=== PATIENT | male | born 1995 | race Caucasian/White ===

== ENCOUNTER → 2017-03-09 | Outpatient (CLI) | payer OTHER ==
[2014-01-24 14:27] VITALS: BP 127/73
[~2017-03-09] MED LIST: DIPH25TA64 PO; FEXO180T81 PO; FLUT16SP NS; METH36TA5 PO; MONT10TA9 PO; VERA120T59 PO
--- NOTE | 2017-03-10 11:16 | SLEEP ---
DATE OF STUDY: 03/09/2017 REFERRING PHYSICIAN: Anamika Moreno. The patient is 21 years old, who weighs 250 pounds with a BMI of 33. The patient's Kiowa score was 2. A split night study was performed at [facility]. During the night study, the patient spent 413 minutes in bed and slept for 261 minutes with a low sleep efficiency of 63%. Sleep latency was prolonged at 261 minutes with an absent REM sleep. Overall, sleep architecture showed increased stage 1 and stage 2 sleep, normal slow wave and significantly reduced REM sleep, which was only 1% the total sleep time. During the diagnostic portion of the study, the patient slept for 175 minutes. During that time, there were 2 obstructive apneas, 41 mixed apneas, no central apneas and 71 hypopneas. The patient's apnea hypopnea index was 39 per hour with a supine index of 59 per hour and a REM index of 40 per hour. EKG monitoring revealed average heart rate of 82 beats per minute, no sustained arrhythmias were observed. There was normal sinus rhythm. PLMS were not seen. Nocturnal oximetry study revealed a mean oxygen saturation of 97% with the lowest of 84%. 6% of time oxygen saturation remained between 80% and 89%. The patient met the criteria for CPAP initiation. It was started at 5 cm water and titrated up to 15 cm water. However, therapeutic CPAP pressure was not achieved on this split night study due to reduced sleep efficiency. At the final pressure, the patient slept for 13 minutes. The patient's AHI was still 92 per hour. Oxygen saturations remained in the mid 80s. The patient used a medium size full face mask. The patient should return to the sleep lab for CPAP/BiPAP titration study. IMPRESSION: 1. Severe sleep apnea-hypopnea syndrome at an AHI of 39 per hour. 2. Reduced sleep efficiency of 63%, resulting from sleep onset and sleep maintenance insomnia. 3. Mild nocturnal hypoxia secondary to obstructive sleep apnea. 4. No clinically significant PLMS. RECOMMENDATIONS: 1. Optimum CPAP pressure was not achieved on this split night study. I would recommend the patient should return to the sleep lab with CPAP/BiPAP titration study starting at a CPAP pressure of 15 cm water. Pt may need BIPAP. 2. Once optimum positive pressure therapy is accomplished, then patient should be followed up in 4-6 weeks to assess compliance and to document clinical improvement. 3. Weight loss is strongly advised. 4. Avoid [employer] depressants. 5. Caution regarding driving until symptoms of sleep apnea resolve with the above recommendations. FLORA CHAVES MD DR: VIJAYA/chata JOB#: [id number] / [id number] ANAMIKA Garcia APRN
== END | disposition home or self-care (01) ==
LOC: SLPLAB 18:01
PROVIDERS: ATTEND Nurse Practitioner Family
DX: G47.33 Obstructive sleep apnea (adult) (pediatric) (principal)
CPT/HCPCS: 95810

== ENCOUNTER → 2017-05-25 | Outpatient (CLI) | payer OTHER ==
[2017-05-25] MEDS: IBUPROFEN 600 MG TABLET. PO (22:00)
== END | disposition home or self-care (01) ==
LOC: RT 18:37
DX: G47.33 Obstructive sleep apnea (adult) (pediatric) (principal)
CPT/HCPCS: 95811

== ENCOUNTER 2017-12-20 04:35 | Emergency (ER) | payer OTHER ==
[~2017-12-20] VITALS: Ht 185.4 cm; Wt 108.0 kg
--- NOTE | 2017-12-20 05:24 | PHYS DOC ---
Past Medical History Past Medical History: Kidney Stone, Other Additional Past Medical Histor: ADHD, seasonal allergies, " periodic legs turn red, burning leg pain" Past Surgical History: Other Additional Past Surgical Histo: T&M tubes bilateral Alcohol Use: None Drug Use: None Adult General Chief Complaint Chief Complaint: FLANK PAIN HPI HPI Patient is a 22 year old male with history of kidney stones who presents with intermittent right-sided flank pain past 3 or 4 days. Patient states he feels as though he is passing kidney stones. Reports decreased urinary output, nausea and vomiting. No fever chills or. No other acute symptoms or complaints. Patient 's been taking Tylenol and ibuprofen with limited relief. Has past previous his previous kidney stones without intervention.[] Review of Systems Review of Systems Review symptoms as per history of present illness. All other review symptoms are negative.[] All other systems were reviewed and found to be within normal limits, except as documented in this note. Current Medications Current Medications Current Medications Medications (Trade) Dose Ordered Sig/Boogie Start Time Stop Time Status Last Admin Dose Admin Fentanyl Citrate (Fentanyl 2ml Vial) 50 mcg 1X ONCE 12/20/17 07:30 12/20/17 07:31 DC 12/20/17 08:08 50 MCG Ketorolac Tromethamine (Toradol 30mg Vial) 30 mg 1X ONCE 12/20/17 05:30 12/20/17 05:31 DC 12/20/17 05:27 30 MG Ondansetron HCl (Zofran) 4 mg 1X ONCE 12/20/17 05:30 12/20/17 05:31 DC 12/20/17 05:26 4 MG Sodium Chloride 1,000 ml @ 1,000 mls/hr 1X ONCE 12/20/17 05:30 12/20/17 06:29 DC 12/20/17 05:24 1,000 MLS/HR Tamsulosin HCl (Flomax) 0.4 mg 1X ONCE 12/20/17 07:30 12/20/17 07:31 DC 12/20/17 08:03 0.4 MG Allergies Allergies Allergies Coded Allergies Type Severity Reaction Last Updated Verified No Known Drug Allergies 01/08/14 No Physical Exam Physical Exam Constitutional: Well developed, well nourished, moderate discomfort secondary to pain. [] HENT: Normocephalic, atraumatic, bilateral external ears normal, oropharynx moist, no oral exudates, nose normal. [] Eyes: PERRLA, EOMI, conjunctiva normal, no discharge. [] Neck: Normal range of motion, no tenderness, supple, no stridor. [] Cardiovascular:Heart rate regular rhythm, no murmur [] Lungs & Thorax: Bilateral breath sounds clear to auscultation [] Abdomen: Bowel sounds normal, soft, no tenderness. [] Skin: Warm, dry, no erythema. [] Back: No tenderness, no CVA tenderness. [] Extremities: No tenderness. [] Neurologic: Alert and oriented, normal motor function, normal sensory function, no focal deficits noted. [] Psychologic: Affect normal, judgement normal, mood normal. [] PE: Osorio Constitutional: Well developed, well nourished, no acute distress Abdomen: Soft, nontender. [] Back: No tenderness, mild left CVA tenderness on palpation Neurologic: Alert and oriented, Current Patient Data Vital Signs Vital Signs Date Time Temp Pulse Resp B/P (MAP) Pulse Ox O2 Delivery O2 Flow Rate FiO2 12/20/17 08:30 12 135/75 (95) 98 Room Air 12/20/17 08:08 18 12/20/17 04:35 97.3 97.3 Lab Values Laboratory Tests Test 12/20/17 05:10 12/20/17 05:50 12/20/17 07:39 White Blood Count 10.2 x10^3/uL (4.0-11.0) Red Blood Count 5.14 x10^6/uL (4.30-5.70) Hemoglobin 16.7 g/dL (13.0-17.5) Hematocrit 47.2 % (39.0-53.0) Mean Corpuscular Volume 92 fL (79-100) Mean Corpuscular Hemoglobin 32 pg (25-35) Mean Corpuscular Hemoglobin Concent 35 g/dL (31-37) Red Cell Distribution Width 13.0 % (11.5-14.5) Platelet Count 222 x10^3/uL (140-400) Neutrophils (%) (Auto) 61 % (31-73) Lymphocytes (%) (Auto) 27 % (24-48) Monocytes (%) (Auto) 7 % (0-9) Eosinophils (%) (Auto) 4 % (0-3) H Basophils (%) (Auto) 1 % (0-3) Neutrophils # (Auto) 6.3 x10^3uL (1.8-7.7) Lymphocytes # (Auto) 2.8 x10^3/uL (1.0-4.8) Monocytes # (Auto) 0.7 x10^3/uL (0.0-1.1) Eosinophils # (Auto) 0.4 x10^3/uL (0.0-0.7) Basophils # (Auto) 0.1 x10^3/uL (0.0-0.2) Sodium Level 144 mmol/L (136-145) Potassium Level 4.0 mmol/L (3.5-5.1) Chloride Level 108 mmol/L (98-107) H Carbon Dioxide Level 25 mmol/L (21-32) Anion Gap 11 (6-14) Blood Urea Nitrogen 16 mg/dL (8-26) Creatinine 1.2 mg/dL (0.7-1.3) Estimated GFR (Cockcroft-Gault) 75.7 Glucose Level 108 mg/dL (70-99) H Calcium Level 8.6 mg/dL (8.5-10.1) Urine Collection Type Unknown Urine Color Yellow Urine Clarity Cloudy Urine pH 6.0 Urine Specific [place] 1.020 Urine Protein Negative mg/dL (NEG-TRACE) Urine Glucose (UA) Negative mg/dL (NEG) Urine Ketones (Stick) Negative mg/dL (NEG) Urine Blood Large (NEG) Urine Nitrite Negative (NEG) Urine Bilirubin Negative (NEG) Urine Urobilinogen Dipstick 0.2 mg/dL (0.2 mg/dL) Urine Leukocyte Esterase Negative (NEG) Urine RBC 20-40 /HPF (0-2) Urine WBC 1-4 /HPF (0-4) Urine Bacteria Few /HPF (0-FEW) Urine Mucus Slight /LPF Laboratory Tests 12/20/17 05:10 Laboratory Tests 12/20/17 05:50 EKG EKG [] Radiology/Procedures Radiology/Procedures PROCEDURE: CT ABDOMEN PELVIS WO CONTRAST INDICATION: left flank pain x 4 days, worse when he woke up tonight COMPARISON: January 23, 2014 TECHNIQUE: Axial CT images obtained through the abdomen and pelvis without contrast. One or more of the following individualized dose reduction techniques were utilized for this examination: 1. Automated exposure control; 2. Adjustment of the mA and/or kV according to patient size; 3. Use of iterative reconstruction technique. FINDINGS: Abdominal aorta is not aneurysmal. No intrahepatic bile duct dilation. No peripancreatic fluid collection. Spleen is unremarkable. Mild left-sided hydronephrosis with 4 mm left proximal ureter stone. Urinary bladder has minimal urine within it at time of exam. No right-sided hydronephrosis. 2 mm nonobstructive right renal stone. No periappendiceal inflammation. Mild haziness to the mesentery in the left-sided the abdomen is again seen with scattered prominent lymph nodes. Degenerative changes spine. IMPRESSION: 1. Left-sided hydronephrosis with proximal ureter stone. Electronically signed by: Raymundo Nguyen MD (12/20/2017 7:06 AM) [facility] Course & Med Decision Making Course & Med Decision Making Pertinent Labs and Imaging studies reviewed. (See chart for details) [Right flank pain radiating to right pelvis. Labs and imaging studies ordered and are pending. Pain and nausea distress. Care endorsed to oncoming ERP at 06: 00 for re-evaluation, review or labs and imaging studies and disposition ] Sign out received from Dr. Mcnulty for patient with LEFT sided flank pain. Patient seen and evaluated by myself. Labs reviewed. CT imaging pending at time of signout. CT with findings consistent for 4mm proximal ureteral stone with mild hydronephrosis. Flomax provided. Patient stable for discharge with outpatient follow-up with PCP/urologist. Urology referral provided. Discussed findings and plan with patient and family, who acknowledge understanding and agreement. Dragon Disclaimer Dragon Disclaimer This electronic medical record was generated, in whole or in part, using a voice recognition dictation system. Departure Departure Impression: Primary Impression: Kidney stone Disposition: HOME, SELF-CARE Condition: STABLE Referrals: SIN ROGERS APRN (PCP) SHASHI HOWARD MD Patient Instructions: Diet for Kidney Stones, Kidney Stones, Nqhn-op-Crcu Scripts Tamsulosin Hcl (FLOMAX) 0.4 Mg Cap.er.24h 1 CAP PO DAILY, #7 CAP 11 Refills Prov: ELLE OSORIO DO 12/20/17 Ondansetron (ZOFRAN ODT) 4 Mg Tab.rapdis 4 MG PO TID PRN PRN for NAUSEA/VOMITING, #14 TAB Prov: ELLE OSORIO DO 12/20/17 Hydrocodone/Apap 5-325 (NORCO 5-325 TABLET) 1 Each Tablet 1 TAB PO PRN Q6HRS PRN for PAIN, #14 TAB 0 Refills Prov: ELLE OSORIO DO 12/20/17 KATALINA MCNULTY DO Dec 20, 2017 05:24 ELLE OSORIO DO Dec 20, 2017 08:48
[2017-12-20] MEDS ORDERED: KETOROLAC 30 MG/ML VIAL. IV ONE (05:30)
[2017-12-20] MEDS ORDERED: IV NORMAL SALINE 1000ML BAG 1,000 ML IV ONE (05:30)
[2017-12-20] MEDS ORDERED: ONDANSETRON PF 4 MG/2 ML VIAL. IV ONE (05:30)
[2017-12-20] MEDS ORDERED: fentaNYL PF VIAL 100 MCG/2 ML VIAL IV ONE ×2 (05:30→07:30)
[2017-12-20 05:34] LABS: BASO # 0.1 x10^3/uL (0.0-0.2); BASO % 1 % (0-3); EOS # 0.4 x10^3/uL (0.0-0.7); EOS % 4 % (0-3); HEMATOCRIT 47.2 % (39.0-53.0); HEMOGLOBIN 16.7 g/dL (13.0-17.5); LYMPH # 2.8 x10^3/uL (1.0-4.8); LYMPH % 27 % (24-48); MEAN CORPUSCULAR HEMOGLOBIN 32 pg (25-35); MEAN CORPUSCULAR HGB CONC 35 g/dL (31-37); MEAN CORPUSCULAR VOLUME 92 fL (79-100); MONO # 0.7 x10^3/uL (0.0-1.1); MONO % 7 % (0-9); NEUT # 6.3 x10^3uL (1.8-7.7); NEUT % 61 % (31-73); PLATELET COUNT 222 x10^3/uL (140-400); RED BLOOD COUNT 5.14 x10^6/uL (4.30-5.70); WHITE BLOOD COUNT 10.2 x10^3/uL (4.0-11.0)
[2017-12-20 06:17] LABS: CALCIUM 8.6 mg/dL (8.5-10.1); CREATININE 1.2 mg/dL (0.7-1.3); GFR 75.7
--- NOTE | 2017-12-20 07:10 | RAD ---
INDICATION: left flank pain x 4 days, worse when he woke up tonight COMPARISON: January 23, 2014 TECHNIQUE: Axial CT images obtained through the abdomen and pelvis without contrast. One or more of the following individualized dose reduction techniques were utilized for this examination: 1. Automated exposure control; 2. Adjustment of the mA and/or kV according to patient size; 3. Use of iterative reconstruction technique. FINDINGS: Abdominal aorta is not aneurysmal. No intrahepatic bile duct dilation. No peripancreatic fluid collection. Spleen is unremarkable. Mild left-sided hydronephrosis with 4 mm left proximal ureter stone. Urinary bladder has minimal urine within it at time of exam. No right-sided hydronephrosis. 2 mm nonobstructive right renal stone. No periappendiceal inflammation. Mild haziness to the mesentery in the left-sided the abdomen is again seen with scattered prominent lymph nodes. Degenerative changes spine. IMPRESSION: 1. Left-sided hydronephrosis with proximal ureter stone. Electronically signed by: Raymundo Nguyen MD (12/20/2017 7:06 AM) [facility]
[2017-12-20] MEDS ORDERED: TAMSULOSIN 0.4 MG CAP.ER.24H. PO ONE (07:30)
[2017-12-20 08:06] LABS: BILIRUBIN,URINE NEGATIVE (NEG); CLARITY,URINE CLOUDY; COLOR,URINE YELLOW; NITRITE,URINE NEGATIVE (NEG); PROTEIN,URINE NEGATIVE (NEG-TRACE); UROBILINOGEN,URINE 0.2 mg/dL (0.2 mg/dL)
[2017-12-20 08:16] LABS: BACTERIA,URINE FEW /HPF (0-FEW); RBC,URINE 20-40 /HPF (0-2)
[2017-12-20 08:30] VITALS: BP 135/75
[2017-12-20] MEDS ORDERED: TAMS0.4C97 PO (08:48)
[2017-12-20] MEDS ORDERED: ONDA4TAB10 PO (08:48)
[2017-12-20] MEDS ORDERED: HYDR-971 PO (08:48)
== END 2017-12-20 09:09 | disposition home or self-care (01) ==
LOC: ER 04:35
DX: N13.2 Hydronephrosis with renal and ureteral calculous obstruction (principal); R11.2 Nausea with vomiting, unspecified; Z87.442 Personal history of urinary calculi
CPT/HCPCS: 36415; 74176; 80048; 81001; 85025; 96361; 96374; 96375; 96376; 99285; J1885; J2405; J3010; J7030

== ENCOUNTER 2017-12-26 12:05 | Day surgery (SDC) | payer OTHER ==
[~2017-12-26 12:05] MED LIST changes: +HYDR-971 PO; +HYDROmorphone 2 MG/ML VIAL IV PRN; +IV RINGERS,LACTATED 1000ML 1,000 ML IV SCH; +LIDOCAINE 1% PF 2 ML VIAL. ID PRN; +MORPHINE SULFATE 2 MG/ML VIAL. IV PRN; +ONDA4TAB10 PO; +ONDANSETRON PF 4 MG/2 ML VIAL. IV PRN; +PROCHLORPERAZINE 10 MG/2 ML VIAL. IV PRN; +TAMS0.4C97 PO; +fentaNYL PF VIAL 100 MCG/2 ML VIAL IV PRN
[2017-12-26] MEDS ORDERED: LIDOCAINE 2% JELLY 6ML IN APPLICATOR. ONE (12:32)
[2017-12-26] MEDS ORDERED: IOHEXOL 300 MG/ML 100ML VIAL. ONE (12:32)
[2017-12-26] MEDS ORDERED: PROPOFOL 20 ML IV ONE (13:54)
[2017-12-26] MEDS ORDERED: fentaNYL PF VIAL 100 MCG/2 ML VIAL ONE (13:54)
[2017-12-26] MEDS ORDERED: MIDAZOLAM HCL/PF 2 MG/2 ML VIAL. ONE (13:54)
[2017-12-26] MEDS ORDERED: DEXAMETHASONE SOD PHOS 20 MG/5 ML VIAL. ONE (14:10)
[2017-12-26] MEDS ORDERED: ONDANSETRON PF 4 MG/2 ML VIAL. ONE (14:10)
[2017-12-26] MEDS ORDERED: SEVOFLURANE > 120 MINUTES. IH ONE (14:13)
[2017-12-26] MEDS ORDERED: KETOROLAC 30 MG/ML INJ FOR OR. INJ ONE (14:55)
[2017-12-26] MEDS ORDERED: SEVOFLURANE 61 TO 120 MINUTES. IH ONE (15:02)
--- NOTE | 2017-12-26 15:07 | DISCH ---
DISCHARGE INSTRUCTIONS Condition on Discharge Condition on Discharge: Stable Activity After Discharge Activity Instructions for Disc: No restrictions Exercise Instruction after Dis: Progress as tolerated Driving Instructions after Dis: Other, see below (DO not drive if taking natcotic pain medication) Diet after Discharge Diet after Discharge: Regular Diet Texture: Regular Wound Incision Care Wound/Incision Care: Other, see below (Remove your ureteral stent on Tuesday morning) Contacting the [facility] after DC Call your doctor for: Fevers, nausea, pain, bleeding, trouble urinating Follow-Up Follow up with: Dr. Jimenez in 3 week. Please call to schedule. GERARDO JIMENEZ MD Dec 26, 2017 15:07
--- NOTE | 2017-12-26 15:11 | PDOC ---
BRIEF OPERATIVE NOTE Pre-Op Diagnosis left ureteral stone Post-Op Diagnosis same Procedure Performed cystoscopy, Left: retrograde pyelogram, ureteroscopy, laser lithotripsy, ureteral stent placement Anesthesia Type: General Blood Loss <5cc Specimens Obtained ureteral stone Findings elevated bladder neck, distal ureteral stone Complications none Operative Note Dictated GERARDO JIMENEZ MD Dec 26, 2017 15:11
[2017-12-26] MEDS: fentaNYL PF VIAL 100 MCG/2 ML VIAL IV PRN ×2 (15:36→15:51)
[2017-12-26] MEDS ORDERED: oxyCODONE/APAP 5/325 1 TAB TABLET PO ONE (15:45)
[2017-12-26] MEDS ORDERED: OXYC-323 PO (16:18)
[2017-12-26 16:30] VITALS: BP 141/89
--- NOTE | 2017-12-27 14:53 | OP ---
DATE OF SURGERY: 12/26/2017 PREOPERATIVE DIAGNOSIS: ____ ureteral stone. POSTOPERATIVE DIAGNOSIS: ____ ureteral stone. PROCEDURES PERFORMED: 1. Cystourethroscopy. 2. Left retrograde pyelogram, ureteroscopy, laser lithotripsy, 6-Ugandan x 26-cm double-J ureteral stent on string placement. ANESTHESIA: General. COMPLICATIONS: None. ESTIMATED BLOOD LOSS: Less than 5 mL. INDICATIONS FOR PROCEDURE: The patient is a 22-year-old male who presented on Tuesday with renal colic and was found to have a 4 mm ureteral stone on the left. He was counseled regarding options and elected for the above-mentioned procedures. DESCRIPTION OF PROCEDURE: The patient was met in the preoperative holding area where his procedure, risks and benefits, and alternatives were reviewed in detail. Informed consent was obtained. He was brought back to the operating room and placed supine on the operating table. A timeout was called, identifying the correct patient, procedure, preoperative antibiotics and left-sided laterality. All members of surgical team were in agreement. General anesthesia was induced and he was repositioned into dorsal lithotomy and prepped and draped in sterile fashion. A 21-Ugandan rigid cystoscope was placed atraumatically through his urethra into his bladder. No abnormalities were noted within the anterior urethra. His prostate was 2 cm and nonobstructing. He had a very high bladder neck. Complete cystoscopy with both 30 and 70 degree lenses did not identify any mucosal lesions, stones or debris. His left ureteral orifice was cannulated with a Sensor wire. This was fed up to the renal pelvis under fluoroscopic guidance. The bladder was emptied and the scope removed. Alongside the wire, a semirigid ureteroscope was placed into the distal ureter where the stone in question was identified approximately 5 cm in. This was lasered with a holmium laser and larger pieces were basketed out. We then performed a pyeloscopy as approximately as we could, which appeared to be near the ureteropelvic junction. A retrograde pyelogram was shot confirming the renal anatomy. There were no filling defects within the upper collecting system. The calices were crisp. The scope was looked out and no trauma or remaining stones were noted within the ureter. The rigid cystoscope was replaced and the bladder inspected. No trauma was noted. The stones were evacuated and sent to pathology labeled left ureteral stone. The bladder was emptied and the scope was removed under direct vision. Over the remaining wire using fluoroscopic guidance, a 6-Ugandan x 26-cm double-J ureteral stent was placed. Good positioning was noted within the kidney and in the bladder on fluoroscopy. This was then tegadermed to his penis. He was awoken and transferred to the PACU in stable condition with plans for stent removal on Tuesday and outpatient followup in 3 weeks to review stone prevention. GERARDO JIMENEZ MD DR: JUSTINE/nts JOB#: [id number] / [id number]
== END 2017-12-26 16:55 | disposition home or self-care (01) ==
LOC: SURG 12:05
PROVIDERS: ATTEND Urology
DX: N20.1 Calculus of ureter (principal); I10 Essential (primary) hypertension; F90.9 Attention-deficit hyperactivity disorder, unspecified type; Z91.018 Allergy to other foods; Z79.899 Other long term (current) drug therapy; Z98.890 Other specified postprocedural states; Z83.3 Family history of diabetes mellitus; Z82.49 Family history of ischemic heart disease and other diseases of the circulatory system; Z72.89 Other problems related to lifestyle
CPT/HCPCS: 52356; 74420; A7015; C1713; C2617; J0690; J1100; J1885; J2250; J2405; J2704; J3010; Q9967

== ENCOUNTER 2018-03-11 10:38 | Emergency (ER) | payer OTHER ==
[~2018-03-11] VITALS: Ht 185.4 cm; Wt 108.9 kg
[~2018-03-11 10:38] MED LIST changes: +HYDR-3164 PO; -HYDR-971 PO; -HYDROmorphone 2 MG/ML VIAL IV PRN; -IV RINGERS,LACTATED 1000ML 1,000 ML IV SCH; -LIDOCAINE 1% PF 2 ML VIAL. ID PRN; -MORPHINE SULFATE 2 MG/ML VIAL. IV PRN; -ONDANSETRON PF 4 MG/2 ML VIAL. IV PRN; +OXYC1TAB15 PO; -PROCHLORPERAZINE 10 MG/2 ML VIAL. IV PRN; -fentaNYL PF VIAL 100 MCG/2 ML VIAL IV PRN
[2018-03-11] MEDS ORDERED: ONDANSETRON PF 4 MG/2 ML VIAL. ONE (11:20)
[2018-03-11] MEDS ORDERED: ONDANSETRON PF 4 MG/2 ML VIAL. IV ONE (11:30)
[2018-03-11] MEDS ORDERED: PANTOPRAZOLE IV PUSH 40 MG VIAL. IVP ONE (11:30)
[2018-03-11] MEDS ORDERED: IV NORMAL SALINE 1000ML BAG 1,000 ML IV ONE (11:30)
[2018-03-11 11:34] LABS: BASO % 1 % (0-3); EOS # 0.1 x10^3/uL (0.0-0.7); EOS % 2 % (0-3); HEMATOCRIT 48.3 % (39.0-53.0); HEMOGLOBIN 17.2 g/dL (13.0-17.5); LYMPH # 1.3 x10^3/uL (1.0-4.8); LYMPH % 18 % (24-48); MEAN CORPUSCULAR HEMOGLOBIN 33 pg (25-35); MEAN CORPUSCULAR HGB CONC 36 g/dL (31-37); MEAN CORPUSCULAR VOLUME 91 fL (79-100); MONO # 0.5 x10^3/uL (0.0-1.1); MONO % 6 % (0-9); NEUT # 5.3 x10^3uL (1.8-7.7); NEUT % 74 % (31-73); PLATELET COUNT 231 x10^3/uL (140-400); RED BLOOD COUNT 5.29 x10^6/uL (4.30-5.70); RED CELL DISTRIBUTION WIDTH 12.6 % (11.5-14.5); WHITE BLOOD COUNT 7.2 x10^3/uL (4.0-11.0)
[2018-03-11 11:37] LABS: CALCIUM 8.9 mg/dL (8.5-10.1); CREATININE 1.1 mg/dL (0.7-1.3); GFR 83.7
[2018-03-11 11:43] LABS: ALBUMIN 4.1 g/dL (3.4-5.0); ALBUMIN/GLOBULIN RATIO 1.2 (1.0-1.7); TOTAL BILIRUBIN 1.3 mg/dL (0.2-1.0); TOTAL PROTEIN 7.4 g/dL (6.4-8.2)
[2018-03-11 12:40] LABS: BILIRUBIN,URINE NEGATIVE (NEG); CLARITY,URINE CLEAR; COLOR,URINE YELLOW; NITRITE,URINE NEGATIVE (NEG); PROTEIN,URINE NEGATIVE (NEG-TRACE)
[2018-03-11 12:55] LABS: BACTERIA,URINE 0 /HPF (0-FEW); RBC,URINE 0 /HPF (0-2)
[2018-03-11 13:40] VITALS: BP 125/67
--- NOTE | 2018-03-11 13:56 | RAD ---
Indication:RUQ PAIN TECHNIQUE: Grayscale, color Doppler and spectral waveform is of the abdomen obtained. COMPARISON:None FINDINGS:Pancreas, IVC and aorta aren't visualized due to overlying bowel gas. Liver is mildly enlarged in size measuring 18 cm with diffuse increased echogenicity and decreased through transmission. Main portal vein is patent. No gallstones, pericholecystic fluid or gallbladder wall thickening. CBD measures 4 mm in diameter and is within normal limits. Right kidney measures 12.3 cm in length without hydronephrosis. IMPRESSION: 1. Mild hepatomegaly with hepatic steatosis. 2. No cholelithiasis or sonographic evidence of acute cholecystitis. Electronically signed by: Peter French DO (03/11/2018 1:52 PM) [facility]
--- NOTE | 2018-03-11 14:01 | PHYS DOC ---
Past Medical History Past Medical History: No Pertinent History, Kidney Stone, Other Additional Past Medical Histor: ADHD, seasonal allergies, " periodic legs turn red, burning leg pain" Past Surgical History: Other Additional Past Surgical Histo: T&M tubes bilateral Alcohol Use: None Drug Use: None Adult General Chief Complaint Chief Complaint: NAUSEA/VOMITING/DIARRHA HPI HPI Patient is a 22 year old male who presents with complaints of epigastric abdominal pain that radiates into his chest starting this morning. Pt states his pain was so bad he was doubled over on the floor, at that time his mother called 911. Paramedics arrived and evaluated pt. Pt was cleared however his pain returned and his mother brought him to the ER for further evaluation. Pain is epigastric with radiation into the center of his chest. The pain was accompanied by one episode of vomiting. Mother is concerned about cardiac etiology because of extension cardiac history. Denies SOA, cough, abdominal pain , diarrhea, flank pain, low back pain, urinary symptoms or other associated complaints. Review of Systems Review of Systems Constitutional: Denies fever or chills [] Eyes: Denies change in visual acuity, redness, or eye pain [] HENT: Denies nasal congestion or sore throat [] Respiratory: Denies cough or shortness of breath [] Cardiovascular: No additional information not addressed in HPI [] GI: Denies abdominal pain, nausea, vomiting, bloody stools or diarrhea [] : Denies dysuria or hematuria [] Musculoskeletal: Denies back pain or joint pain [] Integument: Denies rash or skin lesions [] Neurologic: Denies headache, focal weakness or sensory changes [] Endocrine: Denies polyuria or polydipsia [] All other systems were reviewed and found to be within normal limits, except as documented in this note. Current Medications Current Medications Current Medications Medications (Trade) Dose Ordered Sig/Boogie Start Time Stop Time Status Last Admin Dose Admin Multi-Ingredient Mouthwash/Gargle (Gi Cocktail) 20 ml 1X ONCE 03/11/18 14:45 03/11/18 14:46 Ondansetron HCl (Zofran) 4 mg 1X ONCE 03/11/18 11:30 03/11/18 11:31 DC 03/11/18 11:37 4 MG Pantoprazole Sodium (PROTONIX VIAL for IV PUSH) 40 mg 1X ONCE 03/11/18 11:30 03/11/18 11:31 DC 03/11/18 11:54 40 MG Sodium Chloride 1,000 ml @ 1,000 mls/hr 1X ONCE 03/11/18 11:30 03/11/18 12:29 DC 03/11/18 11:38 1,000 MLS/HR Allergies Allergies Allergies Coded Allergies Type Severity Reaction Last Updated Verified No Known Drug Allergies 01/08/14 No Physical Exam Physical Exam Constitutional: Well developed, well nourished, no acute distress, non-toxic appearance. [] HENT: Normocephalic, atraumatic, bilateral external ears normal, oropharynx moist, no oral exudates, nose normal. [] Eyes: PERRLA, EOMI, conjunctiva normal, no discharge. [] Neck: Normal range of motion, no tenderness, supple, no stridor. [] Cardiovascular:Heart rate regular rhythm, no murmur [] Lungs & Thorax: Bilateral breath sounds clear to auscultation [] Abdomen: Bowel sounds normal, soft, no tenderness, no masses, no pulsatile masses. [] Skin: Warm, dry, no erythema, no rash. [] Back: No tenderness, no CVA tenderness. [] Extremities: No tenderness, no cyanosis, no clubbing, ROM intact, no edema. [] Neurologic: Alert and oriented X 3, normal motor function, normal sensory function, no focal deficits noted. [] Psychologic: Affect normal, judgement normal, mood normal. [] Current Patient Data Vital Signs Vital Signs Date Time Temp Pulse Resp B/P (MAP) Pulse Ox O2 Delivery O2 Flow Rate FiO2 03/11/18 13:40 70 19 125/67 (86) 98 Room Air 03/11/18 10:49 97.5 97.5 Lab Values Laboratory Tests Test 03/11/18 11:15 03/11/18 12:30 White Blood Count 7.2 x10^3/uL (4.0-11.0) Red Blood Count 5.29 x10^6/uL (4.30-5.70) Hemoglobin 17.2 g/dL (13.0-17.5) Hematocrit 48.3 % (39.0-53.0) Mean Corpuscular Volume 91 fL (79-100) Mean Corpuscular Hemoglobin 33 pg (25-35) Mean Corpuscular Hemoglobin Concent 36 g/dL (31-37) Red Cell Distribution Width 12.6 % (11.5-14.5) Platelet Count 231 x10^3/uL (140-400) Neutrophils (%) (Auto) 74 % (31-73) H Lymphocytes (%) (Auto) 18 % (24-48) L Monocytes (%) (Auto) 6 % (0-9) Eosinophils (%) (Auto) 2 % (0-3) Basophils (%) (Auto) 1 % (0-3) Neutrophils # (Auto) 5.3 x10^3uL (1.8-7.7) Lymphocytes # (Auto) 1.3 x10^3/uL (1.0-4.8) Monocytes # (Auto) 0.5 x10^3/uL (0.0-1.1) Eosinophils # (Auto) 0.1 x10^3/uL (0.0-0.7) Basophils # (Auto) 0.0 x10^3/uL (0.0-0.2) Sodium Level 139 mmol/L (136-145) Potassium Level 4.0 mmol/L (3.5-5.1) Chloride Level 104 mmol/L (98-107) Carbon Dioxide Level 25 mmol/L (21-32) Anion Gap 10 (6-14) Blood Urea Nitrogen 15 mg/dL (8-26) Creatinine 1.1 mg/dL (0.7-1.3) Estimated GFR (Cockcroft-Gault) 83.7 BUN/Creatinine Ratio 14 (6-20) Glucose Level 103 mg/dL (70-99) H Calcium Level 8.9 mg/dL (8.5-10.1) Total Bilirubin 1.3 mg/dL (0.2-1.0) H Aspartate Amino Transferase (AST) 51 U/L (15-37) H Alanine Aminotransferase (ALT) 102 U/L (16-63) H Alkaline Phosphatase 68 U/L (46-116) Total Protein 7.4 g/dL (6.4-8.2) Albumin 4.1 g/dL (3.4-5.0) Albumin/Globulin Ratio 1.2 (1.0-1.7) Urine Collection Type Unknown Urine Color Yellow Urine Clarity Clear Urine pH 6.0 Urine Specific Sherrill 1.020 Urine Protein Negative mg/dL (NEG-TRACE) Urine Glucose (UA) Negative mg/dL (NEG) Urine Ketones (Stick) Negative mg/dL (NEG) Urine Blood Negative (NEG) Urine Nitrite Negative (NEG) Urine Bilirubin Negative (NEG) Urine Urobilinogen Dipstick 1.0 mg/dL (0.2 mg/dL) Urine Leukocyte Esterase Negative (NEG) Urine RBC 0 /HPF (0-2) Urine WBC 1-4 /HPF (0-4) Urine Bacteria 0 /HPF (0-FEW) Urine Mucus Mod /LPF Laboratory Tests 03/11/18 11:15 Laboratory Tests 03/11/18 11:15 EKG EKG 1127: Rate 72 sinus rhythm Reviewed by Dr Garcia NO STEMI Radiology/Procedures Radiology/Procedures [[facility] [address] [place] [address] IMAGING REPORT Signed PATIENT: KATALINA GEE ACCOUNT: [id number] : 1995 LOCATION: ER AGE: 22 SEX: M EXAM STATUS: REG ER ORD. PHYSICIAN: CAMI GARCIA DO REASON: RUQ pain, focus on GB PROCEDURE: ABDOMEN LTD Indication:RUQ PAIN TECHNIQUE: Grayscale, color Doppler and spectral waveform is of the abdomen obtained. COMPARISON:None FINDINGS:Pancreas, IVC and aorta aren't visualized due to overlying bowel gas. Liver is mildly enlarged in size measuring 18 cm with diffuse increased echogenicity and decreased through transmission. Main portal vein is patent. No gallstones, pericholecystic fluid or gallbladder wall thickening. CBD measures 4 mm in diameter and is within normal limits. Right kidney measures 12.3 cm in length without hydronephrosis. IMPRESSION: 1. Mild hepatomegaly with hepatic steatosis. 2. No cholelithiasis or sonographic evidence of acute cholecystitis. Electronically signed by: Peter French DO (03/11/2018 1:52 PM) [facility] DICTATED and SIGNED BY: PETER FRENCH DO DATE: 03/11/18 3300 ] Course & Med Decision Making Course & Med Decision Making Pertinent Labs and Imaging studies reviewed. (See chart for details) Extensively spoke with family and pt regarding negative workup including unremarkable EKG. At that time mother stated pt was supposed to have an US of his gallbladder in the past however has not been able to complete exam and she would like it ordered now. Although pain has subsided after protonix administration which is likely because his pain is GERD in nature. However, pt has some mild tenderness to RUQ. Will order US imaging however pt and family is aware that US imaging might be negative. If that is the case he will need to follow-up with his PCP for potentially a nuclear medicine scan to determine functioning of GB. Reviewed negative US scan for cholecystitis. Liver was found to be enlarged which would be consistent with increased liver function tests. At that time mother requested a troponin level be checked. Mother was educated that pt's EKG was normal and his pain has subsided after protonix administration therefore a troponin level is not indicated at this time as his pain is less likely cardiac in nature. Pt is instructed to take Protonix as directed, low fat diet and increase water intake. Follow up with PCP next week Dragon Disclaimer Dragon Disclaimer This electronic medical record was generated, in whole or in part, using a voice recognition dictation system. Departure Departure Impression: Primary Impression: Epigastric abdominal pain Additional Impression: Hepatomegaly Disposition: HOME, SELF-CARE Condition: STABLE Referrals: SIN ROGERS APRN (PCP) Patient Instructions: Diet for Gastroesophageal Reflux Disease, Adult, Easy-to- Read, Gastroesophageal Reflux Disease, Adult, [id number] Additional Instructions: Take Protonix as directed Low fat diet, read dietary guidelines for GERD that were given to you Increase water intake Follow up with your PCP next week Scripts Pantoprazole Sodium (PROTONIX) 20 Mg Tablet. 1 TAB PO BID, #60 TAB Prov: PARAG HEWITT NP 03/11/18 Problem Qualifiers PARAG HEWITT NP Mar 11, 2018 14:01
[2018-03-11] MEDS ORDERED: PANT20TA2 PO (14:28)
--- NOTE | 2018-03-11 14:28 | EKG ---
[facility] [address] [place] [address] Test Date: 2018-03-11 Test Time: 11:27:44 Pat Name: KATALINA GEE Department: Room: Gender: M Performance Improvement Manager: : 1995 Requested By: CAMI LARSEN Order Number: [id number] Reading MD: Measurements Intervals [place] Rate: 72 P: 24 AR: 150 QRS: 31 QRSD: 92 T: 25 QT: 356 QTc: 395 Interpretive Statements SINUS RHYTHM NON SPECIFIC ST-T ABNORMALITY (ELEVATION) OTHERWISE NORMAL ECG No previous ECG available for comparison
[2018-03-11] MEDS ORDERED: LIDO:MAALOX 1:1 20 ML SINGLE DOSE. PO ONE (14:45)
== END 2018-03-11 14:40 | disposition home or self-care (01) ==
LOC: ER 10:38
DX: R10.13 Epigastric pain (principal); R16.0 Hepatomegaly, not elsewhere classified; R10.11 Right upper quadrant pain; R11.10 Vomiting, unspecified; R07.89 Other chest pain; K21.9 Gastro-esophageal reflux disease without esophagitis; F90.9 Attention-deficit hyperactivity disorder, unspecified type; Z87.442 Personal history of urinary calculi
CPT/HCPCS: 36415; 76705; 80053; 81001; 85025; 93005; 96361; 96374; 96375; 99284; C9113; J2405; J7030

== ENCOUNTER → 2018-04-06 | Outpatient (CLI) | payer OTHER ==
[2018-03-11 13:40] VITALS: BP 125/67
[~2018-04-06] VITALS: Ht 185.4 cm; Wt 127.0 kg
[~2018-04-06] MED LIST changes: +MONT10TA49 PO; -MONT10TA9 PO; +PANT20TA2 PO; +SINCALIDE 2.54 MCG in IV NORMAL SALINE 50ML 30 ML IV ONE; -VERA120T59 PO; +VERA120T7 PO
--- NOTE | 2018-04-06 11:09 | RAD ---
HEPATOBILIARY SCAN WITH EJECTION FRACTION 04/06/2018 11:04 AM History: epigastric abdomen pain 1 time about 1 month ago. 5.4mCi Tc99m Choletec and 2.54mcg CCK given IV over 30 minutes Procedure: Serial static images are obtained of the liver and biliary system in the frontal projection following IV administration of 5.4 mCi of Technetium 99m Choletec. After filling of the gallbladder, 2.54 mcg of sincalide were infused over 30 minutes and dynamic imaging continued over this period. The gallbladder ejection fraction was calculated. Findings: There is prompt hepatic clearance of tracer from the blood pool. There is homogeneous distribution throughout the liver. The gallbladder ejection fraction measures 95% (normal gallbladder EF is 35% or greater). IMPRESSION: 1. The cystic duct and common bile duct are patent. Negative for acute cholecystitis. 2. The gallbladder ejection fraction is normal Electronically signed by: Marco Antonio Kirkpatrick MD (04/06/2018 11:05 AM) [id number]
== END | disposition home or self-care (01) ==
LOC: NM 08:46
PROVIDERS: ATTEND Nurse Practitioner Family
DX: R10.13 Epigastric pain (principal)
CPT/HCPCS: 78227; A9537; J2805

== ENCOUNTER → 2018-07-11 | Outpatient (CLI) | payer OTHER ==
[~2018-07-11] MED LIST changes: -MONT10TA49 PO; +MONT10TA9 PO; -SINCALIDE 2.54 MCG in IV NORMAL SALINE 50ML 30 ML IV ONE
[2018-07-11 10:10] LABS: ALBUMIN 4.2 g/dL (3.4-5.0); ALBUMIN/GLOBULIN RATIO 1.4 (1.0-1.7); CALCIUM 9.4 mg/dL (8.5-10.1); CREATININE 1.2 mg/dL (0.7-1.3); POTASSIUM 4.9 mmol/L (3.5-5.1); TOTAL BILIRUBIN 0.5 mg/dL (0.2-1.0); TOTAL PROTEIN 7.3 g/dL (6.4-8.2)
== END | disposition home or self-care (01) ==
LOC: LAB 09:22
PROVIDERS: ATTEND Nurse Practitioner Family
DX: R74.8 Abnormal levels of other serum enzymes (principal)
CPT/HCPCS: 36415; 80053

== ENCOUNTER → 2018-07-28 | Day surgery (SDC) | payer OTHER ==
[~2018-07-28] MED LIST changes: +IV RINGERS,LACTATED 1000ML 1,000 ML IV SCH; +LIDOCAINE 1% PF 2 ML VIAL. ID PRN; +MIDAZOLAM HCL/PF 2 MG/2 ML VIAL. IV PRN; +MIDAZOLAM HCL/PF 2 MG/2 ML VIAL. ONE; +MIDAZOLAM HCL/PF 5 MG/5 ML VIAL. IV ONE; +MIDAZOLAM HCL/PF 5 MG/5 ML VIAL. ONE; +diphenhydrAMINE 50 MG/ML VIAL IV ONE; +diphenhydrAMINE 50 MG/ML VIAL ONE; +fentaNYL PF VIAL 100 MCG/2 ML VIAL IV ONE; +fentaNYL PF VIAL 100 MCG/2 ML VIAL IV PRN; +fentaNYL PF VIAL 100 MCG/2 ML VIAL ONE
[2018-07-28 11:25] VITALS: BP 119/74
[2018-07-28 12:09] LABS: ALBUMIN 3.7 g/dL (3.4-5.0); ALBUMIN/GLOBULIN RATIO 1.4 (1.0-1.7); CALCIUM 8.7 mg/dL (8.5-10.1); CREATININE 0.9 mg/dL (0.7-1.3); GFR 104.6; POTASSIUM 4.1 mmol/L (3.5-5.1); TOTAL BILIRUBIN 0.9 mg/dL (0.2-1.0); TOTAL PROTEIN 6.3 g/dL (6.4-8.2)
== END | disposition home or self-care (01) ==
LOC: ENDOS 09:16
PROVIDERS: ATTEND Internal Medicine Gastroenterology
DX: K29.50 Unspecified chronic gastritis without bleeding (principal); F32.9 Major depressive disorder, single episode, unspecified; Z72.89 Other problems related to lifestyle; Z79.899 Other long term (current) drug therapy
CPT/HCPCS: 36415; 43235; 80053; J1200; J2250; J3010

== ENCOUNTER → 2019-01-30 | Outpatient (CLI) | payer OTHER ==
[2018-07-28 11:25] VITALS: BP 119/74
[~2019-01-30] MED LIST changes: -IV RINGERS,LACTATED 1000ML 1,000 ML IV SCH; -LIDOCAINE 1% PF 2 ML VIAL. ID PRN; -MIDAZOLAM HCL/PF 2 MG/2 ML VIAL. IV PRN; -MIDAZOLAM HCL/PF 2 MG/2 ML VIAL. ONE; -MIDAZOLAM HCL/PF 5 MG/5 ML VIAL. IV ONE; -MIDAZOLAM HCL/PF 5 MG/5 ML VIAL. ONE; +MONT10TA49 PO; -MONT10TA9 PO; -diphenhydrAMINE 50 MG/ML VIAL IV ONE; -diphenhydrAMINE 50 MG/ML VIAL ONE; -fentaNYL PF VIAL 100 MCG/2 ML VIAL IV ONE; -fentaNYL PF VIAL 100 MCG/2 ML VIAL IV PRN; -fentaNYL PF VIAL 100 MCG/2 ML VIAL ONE
--- NOTE | 2019-01-30 07:49 | RAD ---
Examination: KUB History: Ureteral calculus Comparison/Correlation: 12/20/2017 CT abdomen and pelvis without contrast Findings: Frontal views of the abdomen were obtained. Indeterminate density measuring 0.7 cm diameter at the level overlying the left L5 transverse process is questioned. No suspicious right-sided calculi. Urinary bladder is unremarkable. Bowel gas pattern is unremarkable. Impression: No definite radiopaque catheter like delineated. Consider further evaluation with CT for more definitive assessment. Electronically signed by: iRck Sy MD (01/30/2019 7:46 AM) [facility]
== END | disposition home or self-care (01) ==
LOC: RAD 06:23
PROVIDERS: ATTEND Urology
DX: N20.1 Calculus of ureter (principal)
CPT/HCPCS: 74018